=== PATIENT | female | born 1995 | race Caucasian/White ===

== ENCOUNTER → 2023-05-07 | Outpatient (REF) | payer OTHER, MEDICAID ==
[~2023-05-07] MED LIST: DIBU1OIN TOP; IBUP80TA PO; LANOOIN21 TOP; MAPA500T17 PO
== END ==
LOC: M LAB REF 11:04
PROVIDERS: ATTEND Physician Assistant
DX: J02.9 Acute pharyngitis, unspecified (principal)

== ENCOUNTER → 2024-07-05 | Outpatient (REF) | payer OTHER, MEDICAID | LOC: M LAB REF 12:29 | PROVIDERS: ATTEND Physician Assistant | DX: J02.9 Acute pharyngitis, unspecified (principal) ==

== ENCOUNTER → 2025-09-27 | Outpatient (REF) | payer OTHER ==
[~2025-09-27] MED LIST changes: +ALBU8.5H INH; +CLIN-250 PO; +IBUP-1720 PO; +METR-265 PO; +METR375C3 PO; +MOXI400T11 PO
[2025-09-27 18:32] LABS: BASO # 0.0 10^3/uL (0.0-0.2); BASO % 0.6 % (0.0-1.0); EOS # 0.1 10^3/uL (0.0-0.5); EOS % 0.9 % (0.0-3.0); LYMPH # 2.1 10^3/uL (1.5-5.0); LYMPH % 31.1 % (24.0-44.0); MONO # 0.4 10^3/uL (0.0-0.8); MONO % 5.7 % (2.0-8.0); NEUTROPHILS # 4.2 10^3/uL (1.5-8.5); NEUTROPHILS % 61.4 % (36.0-66.0); PLATELET COUNT, AUTOMATED 339 10^3/uL (150-450)
[2025-09-27 18:34] LABS: ALT/SGPT 98 U/L (7.0-40); AST/SGOT 33 U/L (<34); CALCIUM LEVEL 9.0 MG/DL (8.5-10.1); CARBON DIOXIDE LEVEL 28 MMOL/L (20-31); CHLORIDE LEVEL 104 MMOL/L (98-107); CREATININE FOR GFR 0.81 MG/DL (0.55-1.30); GLOMERULAR FILTRATION RATE > 90.0 (>60); POTASSIUM SERUM 4.1 MMOL/L (3.5-5.1); SODIUM LEVEL 140 MMOL/L (136-145)
== END ==
LOC: M SFHCLERA 13:32
PROVIDERS: ATTEND Internal Medicine
DX: K80.18 Calculus of gallbladder with other cholecystitis without obstruction (principal)

== ENCOUNTER → 2025-10-23 | Outpatient (REF) | payer OTHER ==
[2025-10-25 18:27] LABS: HPV APTIMA Not Detected (Not Detected)
== END ==
LOC: M SFHCLERA 17:57
PROVIDERS: ATTEND Student in an Organized Health Care Education/Training Program
DX: Z01.419 Encounter for gynecological examination (general) (routine) without abnormal findings (principal)